=== PATIENT | male | born 1975 | race Caucasian/White ===

== ENCOUNTER 2017-11-19 15:00 | Inpatient (IN) | payer OTHER ==
[~2017-11-19] VITALS: Ht 177.8 cm; Wt 74.8 kg
[2017-11-19 15:01] VITALS: BP 128/72; PULSE 93; RESP 14; TEMP 97.9; O2SAT 97
[2017-11-19 15:41] VITALS: BP 124/73; PULSE 96; RESP 18; TEMP 98.4; O2SAT 99
[2017-11-19 16:32] LABS: AUTOMATED NEUTROPHIL # 3.1 TH/MM3 (1.8-7.7); BASOPHIL # 0.1 TH/MM3 (0-0.2); BASOPHIL % 1.1 % (0.0-2.0); EOSINOPHIL # 0.1 TH/MM3 (0-0.4); EOSINOPHIL % 1.4 % (0.0-4.0); HEMOGLOBIN 14.3 GM/DL (13.0-17.0); LYMPH % 25.7 % (9.0-44.0); LYMPHOCYTE # 1.3 TH/MM3 (1.0-4.8); MEAN CELL VOLUME 88.8 FL (80.0-100.0); MEAN CORPUSCULAR HEMOGLOBIN 30.9 PG (27.0-34.0); MEAN CORPUSCULAR HGB CONC 34.8 % (32.0-36.0); MEAN PLATELET VOLUME 8.8 FL (7.0-11.0); MONO % 10.2 % (0.0-8.0); MONOCYTE # 0.5 TH/MM3 (0-0.9); NEUT % 61.6 % (16.0-70.0); PLATELET COUNT 268 TH/MM3 (150-450); RED BLOOD COUNT 4.62 MIL/MM3 (4.50-5.90); RED CELL DISTRIBUTION WIDTH 12.4 % (11.6-17.2)
[2017-11-19 16:48] LABS: ALBUMIN 4.1 GM/DL (3.4-5.0); AST (GOT) 11 U/L (15-37); BICARBONATE 26.1 MEQ/L (21.0-32.0); BLOOD UREA NITROGEN 18 MG/DL (7-18); CALCIUM 8.7 MG/DL (8.5-10.1); CHLORIDE 103 MEQ/L (98-107); CREATININE 1.24 MG/DL (0.60-1.30); GLOMERULAR FILTRATION RATE 64 ML/MIN (>89); GLUCOSE,RANDOM 122 MG/DL (74-106); SODIUM (NA) 136 MEQ/L (136-145)
[2017-11-19 16:56] LABS: ALKALINE PHOSPHATASE 87 U/L (45-117); ALT (GPT) 12 U/L (12-78); TOTAL BILIRUBIN ADULT 0.6 MG/DL (0.2-1.0); TOTAL PROTEIN 7.5 GM/DL (6.4-8.2)
[2017-11-19 18:01] LABS: ACETAMINOPHEN LESS THAN 2.0 MCG/ML (10.0-30.0)
[2017-11-19 18:36] VITALS: BP 101/67; PULSE 92; RESP 18; TEMP 98.1; O2SAT 100
--- NOTE | 2017-11-19 20:39 | PD ---
HPI Chief Complaint: Psychiatric Symptoms Time Seen by Provider: 19:21 Travel History International Travel<30 days: No Contact w/Intl Traveler<30days: No Traveled to known affect area: No History of Present Illness HPI 42-year-old white male presents to emergency department on a voluntary basis for psychological evaluation. The patient states that he has had problems sleeping and having problems with depression. His symptoms been progressive now for months. He has been losing weight. He has had loss of drive and desire. He was advised by family to come in to be evaluated. He states that he is currently compliant with his medications. He denies any drugs or alcohol. He denies any current medical complaints other than some discomfort in his lips. No homicidal or suicidal ideation. Patient is currently unemployed. Lives by himself. PFSH Past Medical History Narrative Medical Depression Tetanus Vaccination: < 5 Years Past Surgical History Surgical History: No Previous Surgery Social History Alcohol Use: No Tobacco Use: No Substance Use: No Allergies-Medications (Allergen,Severity, Reaction): Coded Allergies: No Known Allergies (Unverified , 11/19/17) Reported Meds & Prescriptions Reported Meds & Active Scripts Active No Active Prescriptions or Reported Medications Review of Systems General / Constitutional: No: Fever Eyes: No: Visual changes HENT: Positive: Other (mild discomfort in the lips), No: Headaches Cardiovascular: No: Chest Pain or Discomfort Respiratory: No: Shortness of Breath Gastrointestinal: No: Abdominal Pain Genitourinary: No: Dysuria Musculoskeletal: No: Pain Skin: No Rash Neurologic: No: Weakness Psychiatric: Positive: Depression, No: Anxiety, Suicidal Ideations, Disorder of Thought, Mood Disorder, Substance Abuse, Homicidal Ideation Endocrine: No: Polydipsia Hematologic/Lymphatic: No: Easy Bruising Physical Exam Narrative GENERAL: Well-nourished, well-developed patient. SKIN: Warm and dry. HEAD: Normocephalic and atraumatic. EYES: No scleral icterus. No injection or drainage. ENT: No nasal drainage noted. Mucous membranes pink. Airway patent. NECK: Supple, trachea midline. Moves head freely without obvious discomfort. CARDIOVASCULAR: Regular rate and rhythm without murmurs, gallops, or rubs. RESPIRATORY: Breath sounds equal bilaterally. No accessory muscle use. GASTROINTESTINAL: Abdomen soft, non-tender, nondistended. EXTREMITIES: No cyanosis or edema. BACK: Nontender without obvious deformity. No CVA tenderness. NEURO: Patient is alert and oriented. no sensorimotor deficits. Nonfocal. Normal speech. PSYCH: No delusions. No auditory or visual hallucinations. Data Data Last Documented VS Vital Signs Date Time Temp Pulse Resp B/P (MAP) Pulse Ox O2 Delivery O2 Flow Rate FiO2 11/19/17 18:36 98.1 92 18 101/67 (78) 100 Room Air Orders Orders Complete Blood Count With Diff (11/19/17 15:23) Comprehensive Metabolic Panel (11/19/17 15:23) Thyroid Stimulating Hormone (11/19/17 15:23) Psych Screen (11/19/17 15:23) Drug Screen, Random Urine (11/19/17 15:23) Alcohol (Ethanol) (11/19/17 15:23) Salicylates (Aspirin) (11/19/17 15:23) Tylenol (Acetaminophen) (11/19/17 15:23) Diet Regular Basic (11/19/17 Dinner) Urinalysis - C+S If Indicated (11/19/17 16:47) Labs Laboratory Tests Test 11/19/17 15:15 11/19/17 16:10 Urine Opiates Screen NEG Urine Barbiturates Screen NEG Urine Amphetamines Screen NEG Urine Benzodiazepines Screen NEG Urine Cocaine Screen NEG Urine Cannabinoids Screen NEG White Blood Count 5.0 TH/MM3 Red Blood Count 4.62 MIL/MM3 Hemoglobin 14.3 GM/DL Hematocrit 41.0 % Mean Corpuscular Volume 88.8 FL Mean Corpuscular Hemoglobin 30.9 PG Mean Corpuscular Hemoglobin Concent 34.8 % Red Cell Distribution Width 12.4 % Platelet Count 268 TH/MM3 Mean Platelet Volume 8.8 FL Neutrophils (%) (Auto) 61.6 % Lymphocytes (%) (Auto) 25.7 % Monocytes (%) (Auto) 10.2 % Eosinophils (%) (Auto) 1.4 % Basophils (%) (Auto) 1.1 % Neutrophils # (Auto) 3.1 TH/MM3 Lymphocytes # (Auto) 1.3 TH/MM3 Monocytes # (Auto) 0.5 TH/MM3 Eosinophils # (Auto) 0.1 TH/MM3 Basophils # (Auto) 0.1 TH/MM3 CBC Comment DIFF FINAL Differential Comment Blood Urea Nitrogen 18 MG/DL Creatinine 1.24 MG/DL Random Glucose 122 MG/DL Total Protein 7.5 GM/DL Albumin 4.1 GM/DL Calcium Level 8.7 MG/DL Alkaline Phosphatase 87 U/L Aspartate Amino Transf (AST/SGOT) 11 U/L Alanine Aminotransferase (ALT/SGPT) 12 U/L Total Bilirubin 0.6 MG/DL Sodium Level 136 MEQ/L Potassium Level 4.0 MEQ/L Chloride Level 103 MEQ/L Carbon Dioxide Level 26.1 MEQ/L Anion Gap 7 MEQ/L Estimat Glomerular Filtration Rate 64 ML/MIN Thyroid Stimulating Hormone 3rd Gen 0.886 uIU/ML Salicylates Level LESS THAN 1.7 MG/DL Acetaminophen Level LESS THAN 2.0 MCG/ML Ethyl Alcohol Level LESS THAN 3 MG/DL MDM Medical Decision Making Medical Screen Exam Complete: Yes Emergency Medical Condition: Yes Medical Record Reviewed: Yes Interpretation(s) Laboratory Tests Test 11/19/17 15:15 11/19/17 16:10 Urine Opiates Screen NEG Urine Barbiturates Screen NEG Urine Amphetamines Screen NEG Urine Benzodiazepines Screen NEG Urine Cocaine Screen NEG Urine Cannabinoids Screen NEG White Blood Count 5.0 TH/MM3 Red Blood Count 4.62 MIL/MM3 Hemoglobin 14.3 GM/DL Hematocrit 41.0 % Mean Corpuscular Volume 88.8 FL Mean Corpuscular Hemoglobin 30.9 PG Mean Corpuscular Hemoglobin Concent 34.8 % Red Cell Distribution Width 12.4 % Platelet Count 268 TH/MM3 Mean Platelet Volume 8.8 FL Neutrophils (%) (Auto) 61.6 % Lymphocytes (%) (Auto) 25.7 % Monocytes (%) (Auto) 10.2 % Eosinophils (%) (Auto) 1.4 % Basophils (%) (Auto) 1.1 % Neutrophils # (Auto) 3.1 TH/MM3 Lymphocytes # (Auto) 1.3 TH/MM3 Monocytes # (Auto) 0.5 TH/MM3 Eosinophils # (Auto) 0.1 TH/MM3 Basophils # (Auto) 0.1 TH/MM3 CBC Comment DIFF FINAL Differential Comment Blood Urea Nitrogen 18 MG/DL Creatinine 1.24 MG/DL Random Glucose 122 MG/DL Total Protein 7.5 GM/DL Albumin 4.1 GM/DL Calcium Level 8.7 MG/DL Alkaline Phosphatase 87 U/L Aspartate Amino Transf (AST/SGOT) 11 U/L Alanine Aminotransferase (ALT/SGPT) 12 U/L Total Bilirubin 0.6 MG/DL Sodium Level 136 MEQ/L Potassium Level 4.0 MEQ/L Chloride Level 103 MEQ/L Carbon Dioxide Level 26.1 MEQ/L Anion Gap 7 MEQ/L Estimat Glomerular Filtration Rate 64 ML/MIN Thyroid Stimulating Hormone 3rd Gen 0.886 uIU/ML Salicylates Level LESS THAN 1.7 MG/DL Acetaminophen Level LESS THAN 2.0 MCG/ML Ethyl Alcohol Level LESS THAN 3 MG/DL Differential Diagnosis MDM: High Differential diagnoses: Schizophrenia, schizoaffective disorder, bipolar, anxiety, depression, adjustment reaction, mood disorder NOS, ODD, depressive disorder NOS, dementia, dementia with agitation, psychosis NOS, substance induced mood disorder, DMDD, Asperger syndrome, infection,electrolyte abnormality, malingering. Narrative Course Mental health screening discussed with the patient. Psychiatric screen ordered. The patient been medically cleared. Diagnosis Primary Impression: Medical clearance for psychiatric admission Scripts No Active Prescriptions or Reported Meds Condition: Stable Maik Heller Nov 19, 2017 20:39
[2017-11-19] MEDS ORDERED: ALUMINUM/MAGNESIUM/SIMETH 30 ML CUP PO PRN (23:00)
[2017-11-19] MEDS ORDERED: ACETAMINOPHEN 325 MG TAB PO PRN (23:00)
[2017-11-19] MEDS ORDERED: MAGNESIUM HYDROXIDE SUSP 30 ML CUP PO PRN (23:00)
[2017-11-19 23:38] VITALS: BP 125/74; PULSE 88; RESP 18; TEMP 97.8; O2SAT 99
[2017-11-20] MEDS ORDERED: hydrOXYzine HCL 50 MG TAB PO PRN (00:30)
[2017-11-20 05:58] VITALS: BP 143/64; PULSE 90; RESP 16; TEMP 98.9; O2SAT 98
[2017-11-20 10:01] LABS: CHOLESTEROL 127 MG/DL (120-200); TRIGLYCERIDES 50 MG/DL (42-150)
[2017-11-20 10:04] LABS: CHOLESTEROL/ HDL RATIO 2.57 RATIO; HDL CHOLESTEROL 49.3 MG/DL (40.0-60.0); LDL CHOLESTEROL 68 MG/DL (0-99)
[2017-11-20 15:11] LABS: HEMOGLOBIN A1C 5.1 % (4.3-6.0)
[2017-11-20] MEDS ORDERED: diphenhydrAMINE HCL 50 MG CAP PO PRN (15:30)
[2017-11-20] MEDS ORDERED: LORazepam 1 MG TAB PO PRN (15:30)
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
[2017-11-20] MEDS ORDERED: QUEtiapine FUMARATE 25 MG TAB PO SCH (21:00)
[2017-11-21 05:01] VITALS: BP 126/88; PULSE 73; RESP 16; TEMP 97.7; O2SAT 100
--- NOTE | 2017-11-21 12:48 | HHI.PYPN ---
Subjective Remarks Pt seen and discussed with staff. He remains depressed and has been lying in room staring at room. His affect is bizarre and he is guarded and evasive. When asked about SI, he replies, "that's what they say." Mental Status Examination Appearance: Appropriate Consciousness: Alert Orientation: Person, Place, Date/Time Motor Activity: Normal gait Speech: Unremarkable Language: Adequate Fund of Knowledge: Inadequate Attention and Concentration: Adequate Memory: Unremarkable Mood: Sad Affect: Flat, Other (incongruent smile) Thought Process & Associations: Intact, Linear Thought Content: Appropriate Hallucination Type: None (denies ) Suicidal Ideation: Yes (evasive) Suicidal Plan: No Suicidal Intention: No Homicidal Ideation: No Homicidal Plan: No Homicidal Intention: No Insight: Poor Judgment: Poor Results Vitals/IOs Vital Signs Date Time Temp Pulse Resp B/P (MAP) Pulse Ox O2 Delivery O2 Flow Rate FiO2 11/21/17 05:01 97.7 73 16 126/88 (101) 100 11/19/17 18:36 Room Air Assessment & Plan Problem List: (1) Major depressive disorder, single episode, severe without psychotic features ICD Codes: F32.2 - Major depressive disorder, single episode, severe without psychotic features Assessment & Plan Question whether or not there is element of psychosis to presentation. Continue to evaluate and continue current tx plan which includes antipsychotic. Estimated LOS: days Justification for Cont. Inpt. impairments in safety Abigail Pérez MD Nov 21, 2017 12:48
[2017-11-21 18:11] VITALS: BP 123/77; PULSE 74; RESP 16; TEMP 97.8; O2SAT 100
[2017-11-21] MEDS ORDERED: QUEtiapine FUMARATE 100 MG TAB PO SCH (21:00)
[2017-11-22 05:25] VITALS: BP 125/84; PULSE 82; RESP 16; TEMP 97.8; O2SAT 99
--- NOTE | 2017-11-22 15:39 | HHI.PYPN ---
Subjective Remarks PT seen and discussed with staff. He was out of room more this morning today but did not participate in unit activities. He reports he remains depressed but mood is more stable. He is compliant with medications. No aggression or agitation. Mental Status Examination Appearance: Appropriate Consciousness: Alert Orientation: Person, Place, Date/Time Motor Activity: Normal gait Speech: Unremarkable Language: Adequate Fund of Knowledge: Inadequate Attention and Concentration: Adequate Memory: Unremarkable Mood: Sad Affect: Flat, Other (incongruent smile) Thought Process & Associations: Intact, Linear Thought Content: Appropriate Hallucination Type: None (denies ) Suicidal Ideation: No (denies) Suicidal Plan: No Suicidal Intention: No Homicidal Ideation: No Homicidal Plan: No Homicidal Intention: No Insight: Poor Judgment: Poor Results Vitals/IOs Vital Signs Date Time Temp Pulse Resp B/P (MAP) Pulse Ox O2 Delivery O2 Flow Rate FiO2 11/22/17 05:25 97.8 82 16 125/84 (98) 99 11/19/17 18:36 Room Air Assessment & Plan Problem List: (1) Major depressive disorder, single episode, severe without psychotic features ICD Codes: F32.2 - Major depressive disorder, single episode, severe without psychotic features Assessment & Plan Pt improving. Continue current tx plan. Estimated LOS: days Justification for Cont. Inpt. risk of decompensation Abigail Pérez MD Nov 22, 2017 15:39
[2017-11-22 16:55] VITALS: BP 121/77; PULSE 80; RESP 18; TEMP 98.7; O2SAT 99
[2017-11-22] MEDS ORDERED: QUEtiapine FUMARATE 200 MG TAB PO SCH (21:00)
--- NOTE | 2017-11-23 15:09 | HHI.PYPN ---
Subjective Remarks Patient seen for follow-up, chart reviewed. Discussion nursing staff reported patient has been pleasant with staff and cooperative. Patient states that he had been going to groups over the weekend, that his mood has been somewhat anxious but continued for his feeling somewhat depressed but improving. Patient reports sleeping well, denies having any suicide ideations. Patient states he has not spoken with family recently but plans on doing so later today. Collateral information obtained by treatment team, patient's mother will be picking patient up upon discharge she will be providing support for him. Review of Systems Except as stated in HPI: all other systems reviewed are Neg Mental Status Examination Appearance: Appropriate Consciousness: Alert Orientation: Person, Place, Date/Time Motor Activity: Normal gait Speech: Unremarkable Language: Adequate Fund of Knowledge: Inadequate Attention and Concentration: Adequate Memory: Unremarkable Mood: Sad Affect: Blunt Thought Process & Associations: Intact, Linear Thought Content: Appropriate Hallucination Type: None (denies ) Suicidal Ideation: No Suicidal Plan: No Suicidal Intention: No Homicidal Ideation: No Homicidal Plan: No Homicidal Intention: No Insight: Fair Judgment: Impulsive Results Vitals/IOs Vital Signs Date Time Temp Pulse Resp B/P (MAP) Pulse Ox O2 Delivery O2 Flow Rate FiO2 11/22/17 16:55 98.7 80 18 121/77 (92) 99 11/19/17 18:36 Room Air Assessment & Plan Problem List: (1) Major depressive disorder, single episode, severe without psychotic features ICD Codes: F32.2 - Major depressive disorder, single episode, severe without psychotic features Assessment & Plan Patient this time continues to have improvement in depressed mood with noted motivation, will continue current treatment regimen. We will continue to monitor mood and behavior. Discharge planning in progress. Justification for Cont. Inpt. At risk for further decompensation if at lower level of care Discharge Planning Patient was discharged back to his residence with the support of his mother upon discharge. Herman Vaughn MD Nov 23, 2017 15:09
[2017-11-23 18:12] VITALS: BP 112/71; PULSE 94; RESP 18; TEMP 98.3; O2SAT 98
[2017-11-23] MEDS ORDERED: QUEtiapine FUMARATE 100 MG TAB PO SCH (21:00)
[2017-11-24 04:50] VITALS: BP 124/74; PULSE 86; RESP 16; TEMP 97.7; O2SAT 99
[2017-11-24] MEDS ORDERED: QUET1TAB10 PO (13:18)
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
== END 2017-11-24 20:00 | disposition home or self-care (01) | DRG 885 ==
LOC: NEPJ 15:00 → NEDA 21:50 → H260 22:37
PROVIDERS: ADMIT Student in an Organized Health Care Education/Training Program; ATTEND Student in an Organized Health Care Education/Training Program
DX: F32.2 Major depressive disorder, single episode, severe without psychotic features (principal); F41.9 Anxiety disorder, unspecified; G47.00 Insomnia, unspecified
CPT/HCPCS: 80053; 80061; 80307; 83036; 84443; 85025; 99285